=== PATIENT | female | born 1980 | race African-American/Black ===

== ENCOUNTER 2024-02-01 22:18 | Emergency (ER) | payer OTHER, SELFPAY ==
[2024-02-01 22:28] VITALS: BP 107/67; PULSE 82; TEMP 36.6; O2SAT 98; BMI 30.9
--- NOTE | 2024-02-01 22:30 | ECG_ITS ---
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
--- NOTE | 2024-02-01 23:14 | ED.ANXIETY1 ---
HPI - Anxiety General Chief Complaint: Anxiety Stated Complaint: PANIC ATTACK, SOB Time Seen by Provider: 02/01/24 23:11 Source: patient Mode of arrival: Wheelchair Limitations: no limitations History of Present Illness HPI narrative: history of anxiety and panic. Followed by psychiatry and takes Latuda and lexapro. States can have panic attack sometimes 2 times per week. Had panic attack tonight and felt like she would pass out. Now presents to the Er and is feeling somewhat better but fearful that it may return when she gets home and she is requesting something for anxiety Related Data Allergies Allergy/AdvReac Type Severity Reaction Status Date / Time No Known Drug Allergies Allergy Verified 02/01/24 22:33 Review of Systems ROS Status of ROS 10 or more systems reviewed and unremarkable except as noted in history and below Exam Constitutional Vital Signs, click to edit/add: Last Vital Signs Temp 98 F 02/01/24 22:28 Pulse 84 02/01/24 23:54 Resp 18 02/01/24 23:54 BP 141/88 02/01/24 23:54 Pulse Ox 99 02/01/24 23:54 O2 Del Method Room Air 02/01/24 23:54 Common normals: no apparent distress, average body habitus, oriented x3, no limitations, healthy appearing, alert and well nourished [facility] Common normals: normocephalic and head/scalp atraumatic Eye Common normals: PERRL, EOMs intact bilaterally and conjunctivae normal Respiratory Common normals: normal respiratory effort, no retractions, no use of accessory muscles and clear to auscultation bilaterally Cardio Common normals: regular rate, regular rhythm, S1 normal heart sound and S2 normal heart sound Extremity Common normals: normal to inspection and full ROM Neuro Common normals: oriented x3, CN's II-XII intact bilaterally, moves all extremities and no focal motor deficits Psych Mood and affect: anxious Course Vital Signs Vital signs: Vital Signs Temperature 98 F 02/01/24 22:28 Pulse Rate 82 02/01/24 22:28 Respiratory Rate 20 02/01/24 22:28 Blood Pressure 107/67 02/01/24 22:28 Pulse Oximetry 98 02/01/24 22:28 Oxygen Delivery Method Room Air 02/01/24 22:28 Temperature 98 F 02/01/24 22:28 Pulse Rate 84 02/01/24 23:54 Respiratory Rate 18 02/01/24 23:54 Blood Pressure 141/88 02/01/24 23:54 Pulse Oximetry 99 02/01/24 23:54 Oxygen Delivery Method Room Air 02/01/24 23:54 MDM - Anxiety MDM Narrative Medical decision making narrative: patient presents with acute anxiety attack. She is calming down some now. Given dose of Vistaril and is feeling better at this time. Discharged home with Vistaril and advised to follow up with her doctor Discharge Plan Discharge Stand Alone Forms: Portal Instructions Chief Complaint: Anxiety Clinical Impression: Acute anxiety Patient Disposition: Home, Self-Care Print Language: Cymro Instructions: Anxiety (ED) Additional Instructions: follow up with your psychiatrist next week Referrals: ANISA LIMA [Primary Care Provider] - 1 week Discharge Date/Time: 02/02/24 00:02
[2024-02-01] MEDS: HYDROXYZINE PAMOATE 25 MG CAPSULE 50 MG PO (23:34)
[2024-02-01 23:54] VITALS: BP 141/88; PULSE 84; O2SAT 99
== END 2024-02-02 00:02 | disposition home or self-care (01) ==
PROVIDERS: Emergency Provider Internal Medicine; PCP Family Medicine
DX: F41.9 Anxiety disorder, unspecified (principal)
CPT/HCPCS: 93005; 99283; Q0177